=== PATIENT | male | born 1975 | race Caucasian/White ===

== ENCOUNTER 2017-03-11 10:46 | Emergency (ER) | payer MEDICAID ==
[~2017-03-11] VITALS: Ht 170.2 cm; Wt 83.0 kg
[2017-03-11 10:48] VITALS: Ht 170.2 cm; Wt 83.0 kg
[2017-03-11] MEDS ORDERED: IBUPROFEN 200 MG TAB PO STA (11:29)
[2017-03-11] MEDS ORDERED: HYDROCODONE/APAP (5/325) TAB PO ONE (11:30)
--- NOTE | 2017-03-11 12:01 | ERD ---
ER Documentation Chief Complaint Chief Complaint LEFT FOOT PAIN HPI 41-year-old male presents emergency department complaining of left toe pain status post having a wooden plank fall on his feet. States that he is able to ambulate with difficulty. Patient admits to having restricted range of motion no medications given ROS All systems reviewed and are negative except as per history of present illness. Medications Home Meds Active Scripts Ibuprofen* (Ibuprofen*) 400 Mg Tablet, 400 MG PO Q6H Y for PAIN, #30 TAB Prov:LORRAINE CHRISTIANSEN PA-C 03/11/17 Allergies Allergies: Coded Allergies: No Known Allergy (Unverified , 03/11/17) PMhx/Soc Medical and Surgical Hx: pt denies Medical Hx, pt denies Surgical Hx Hx Alcohol Use: No Hx Substance Use: No Hx Tobacco Use: No Smoking Status: Never smoker Physical Exam Vitals Vital Signs Date Time Temp Pulse Resp B/P Pulse Ox O2 Delivery O2 Flow Rate FiO2 03/11/17 10:48 98.4 83 140/87 99 Physical Exam Const: [] Head: Atraumatic Eyes: Normal Conjunctiva ENT: Normal External Ears, Nose and Mouth. Neck: Full range of motion..~ No meningismus. Resp: Clear to auscultation bilaterally Cardio: Regular rate and rhythm, no murmurs Abd: Soft, non tender, non distended. Normal bowel sounds Skin: No petechiae or rashes Back: No midline or flank tenderness Ext: Tenderness to palpation over the left great toe Neur: Awake and alert Psych: Normal Mood and Affect Results 24 hrs Current Medications Medications (Trade) Dose Ordered Sig/Favio Route PRN Reason Start Time Stop Time Status Last Admin Dose Admin Acetaminophen/ Hydrocodone Bitart ([place] (5/325)) 1 tab ONCE ONCE PO 03/11/17 11:30 03/11/17 11:31 DC 03/11/17 11:42 Ibuprofen (Motrin) 400 mg ONCE STAT PO 03/11/17 11:29 03/11/17 11:30 DC 03/11/17 11:43 Procedures/MDM 41-year-old male presents to the emergency department complaining of left toe pain status post contusion with a wooden plank. X-ray of the left foot was done and radiologist stated 1. No acute fractures or dislocations. 2. Joint space narrowing at the left second through fourth proximal and distal interphalangeal joints. 3. Mild hallux valgus She was given [place] and ibuprofen in the ED with some relief in pain. Ortho shoe given. He is neurovascular intact to be discharged home to follow-up with primary care physician. Departure Diagnosis: Primary Impression: Contusion of left foot Condition: Stable LORRAINE CHRISTIANSEN PA-C Mar 11, 2017 12:01
--- NOTE | 2017-03-11 12:11 | RADRPT ---
PROCEDURE: Left foot series CLINICAL INDICATION: Pain and contusion TECHNIQUE: AP oblique and lateral views para COMPARISON: None available FINDINGS: No acute fractures or dislocations are present. Mild hallux valgus is noted. Degenerative joint spac e narrowing is present of the left second through fourth distal interphalangeal joints and proximal interphalangeal joints. The soft tissues are normal. No radiodense foreign bodies are present. IMPRESSION: 1. No acute fractures or dislocations. 2. Joint space narrowing at the left second through fourth proximal and distal interphalangeal join ts. 3. Mild hallux valgus RPTAT: HDC .Lisa Bermudez MD, MD Date Time Electronically viewed and signed by .Lisa Bermudez MD, on 03/11/2017 12:11 .C/
[2017-03-11] MEDS ORDERED: IBUP400T22 PO (12:19)
== END 2017-03-11 13:17 | disposition home or self-care (01) ==
LOC: FTE 10:46
DX: S90.32XA Contusion of left foot, initial encounter (principal); W20.8XXA Other cause of strike by thrown, projected or falling object, initial encounter; Y92.9 Unspecified place or not applicable
CPT/HCPCS: 73630; Z7502; Z7610